=== PATIENT | female | born 1975 | race Caucasian/White ===

== ENCOUNTER → 2018-10-01 | Outpatient (CLI) | payer MEDICAID ==
--- NOTE | 2018-10-03 12:34 | CRLMY ---
INDICATION: Bilat screening mammogram, asymptomatic 43 year old female been obtained using full-field digital technique. These mammographic images were interpreted with the benefit of computer-aided detection. COMPARISON FILM: 09/12/17, 09/11/16. FINDINGS: The breast tissue is almost entirely fat. There are no masses or calcifications that are suspicious for malignancy. IMPRESSION: There is no radiographic evidence for malignancy. ASSESSMENT: BI-RADS Category 1: Negative RECOMMENDATION: Routine screening mammogram in 1 year. A lay language report of this examination will be provided to the patient. Breast Tomosynthesis was used in this interpretation. [email or web address] Dictated by: Jeremiah Klein MD @ 10/03/2018 12:33:11 (Electronically Signed)
== END | disposition home or self-care (01) ==
LOC: JP.MAM 10:24
PROVIDERS: ATTEND Nurse Practitioner Family
DX: Z12.31 Encounter for screening mammogram for malignant neoplasm of breast (principal)
CPT/HCPCS: 77063; 77067

== ENCOUNTER 2019-03-08 17:12 | Emergency (ER) | payer MEDICAID ==
[2019-03-08] MEDS ORDERED: traMADol 50 MG Tab PO ONE (18:42)
--- NOTE | 2019-03-08 18:48 | EDM.PDOC ---
ED HPI GENERAL MEDICAL PROBLEM - General Chief Complaint: Lower Extremity Injury/Pain Stated Complaint: LEFT LOWER LEG PAIN Time Seen by Provider: 03/08/19 18:31 Source of Information: Reports: Patient History Limitations: Reports: No Limitations - History of Present Illness INITIAL COMMENTS - FREE TEXT/NARRATIVE: Elaina is a 43 year old female who presents to the ED today with c/o left elise and ankle pain. Patient was in her yard picking up dog poop when she tripped over the dog leash. Patient able to bear weight but it is painful. Patient has not taken anything for her pain. Patient denies any other injuries. Onset: Today, Sudden Left Ankle Pain Score (Numeric/FACES): 3 - Related Data Allergies Allergy/AdvReac Type Severity Reaction Status Date / Time adhesive tape Allergy Swelling Verified 03/08/19 18:02 hydrocodone [From Vicodin] Allergy Drowsiness Verified 03/08/19 18:02 potassium clavulanate Allergy Itching Verified 03/08/19 18:02 [From Augmentin] Home Meds: Home Meds Albuterol [IJD: Albuterol HFA] 1 - 2 inh INH ASDIRECTED PRN 05/31/16 [History] Loratadine [Claritin] 10 mg PO DAILY 05/31/16 [History] Fluticasone/Vilanterol [Breo Ellipta 100-25 MCG Inhalation Kit] 1 dose IH DAILY 03/08/19 [History] Methotrexate Sodium [Methotrexate] 10 mg PO WEEKLY 03/08/19 [History] Omeprazole 40 mg PO DAILY 03/08/19 [History] Pregabalin [Lyrica] 200 mg PO BID 03/08/19 [History] metFORMIN [Glucophage XR] 500 mg PO BIDMEALS 03/08/19 [History] predniSONE [Prednisone] 2.5 mg PO DAILY 03/08/19 [History] Past Medical History HEENT History: Reports: Impaired Vision Respiratory History: Reports: Other (See Below) Other Respiratory History: RAD Gastrointestinal History: Reports: Chronic Constipation, Hemorrhoids Genitourinary History: Reports: None MANAGER LIBRARY History: Reports: , Other (See Below) Other MANAGER LIBRARY History: 2.3 cm ovarian cyst Endocrine/Metabolic History: Reports: Obesity/BMI 30+ - Infectious Disease History Infectious Disease History: Reports: Chicken Pox, Measles - Past Surgical History Head Surgeries/Procedures: Reports: None HEENT Surgical History: Reports: None Respiratory Surgical History: Reports: Other (See Below) Other Respiratory Surgeries/Procedures: biopsy ? GI Surgical History: Reports: Appendectomy Female Surgical History: Reports: Section, Tubal Ligation Endocrine Surgical History: Reports: None Musculoskeletal Surgical History: Reports: Other (See Below) Dermatological Surgical History: Reports: None Social & Family History - Tobacco Use Smoking Status *Q: Current Every Day Smoker Years of Tobacco use: 20 Packs/Tins Daily: 0.5 - Caffeine Use Caffeine Use: Reports: Coffee - Recreational Drug Use Recreational Drug Use: No Review of Systems - Review of Systems Review Of Systems: ROS reveals no pertinent complaints other than HPI. ED EXAM, GENERAL - Physical Exam Exam: See Below Exam Limited By: No Limitations General Appearance: Alert, WD/WN, No Apparent Distress Head: Atraumatic Neck: Normal Inspection Respiratory/Chest: No Respiratory Distress Cardiovascular: Regular Rate, Rhythm Peripheral Pulses: 2+: Dorsalis Pedis (L) Extremities: Normal Inspection, Normal Range of Motion, Other (mildly tender left upper gastrocnemious and left lateral malleolar region. Patient has intact cap refill, pulses, strength and sesation) Neurological: Alert, Oriented, CN II-XII Intact Course - Vital Signs Last Recorded V/S: Last Vital Signs Temp 37.0 C 03/08/19 18:06 Pulse 82 03/08/19 18:06 Resp 16 03/08/19 18:06 BP 149/81 H 03/08/19 18:06 Pulse Ox 98 03/08/19 18:06 Elaina is a 43 year old female who presents to the ED today with c/o left ankle and left elise pain after she rolled her ankle after after tripping over leash while picking up dog poop. Please refer to HPI and focused exam. Patient arrives here hemodynamically stable and afebrile, x-rays negative for fracture, consistent with left ankle sprain. Patient placed in CAM boot, Tylenol for pain. RICE encouraged. Follow up with PCP if symptoms not improved in one week. Wear boot for the next week. Patient agreeable to plan fo care and discharged in stable condition. - Orders/Labs/Meds Orders: Active Orders 24 hr Category Date Time Status Tibia Fibula Lt [CR] Stat Exams 03/08/19 18:42 Taken Meds: Medications Discontinued Medications Generic Name Dose Route Start Last Admin Trade Name Erika PRN Reason Stop Dose Admin Tramadol HCl 50 mg 03/08/19 18:42 03/08/19 18:45 Ultram PO 03/08/19 18:43 50 mg ONETIME ONE Administration Departure - Departure Time of Disposition: 20:30 Disposition: Home, Self-Care 01 Condition: Good Clinical Impression: Ankle sprain Qualifiers: Encounter type: initial encounter Involved ligament of ankle: unspecified ligament Laterality: left Qualified Code(s): S93.402A - Sprain of unspecified ligament of left ankle, initial encounter - Discharge Information Instructions: Ankle Sprain, [id number], Walking Boot, Adult Referrals: Jessica Mensah CNM [Primary Care Provider] - Forms: ED Department Discharge Additional Instructions: Wear walking boot for the next week. Tylenol for pain. Ice/Elevate Follow up in clinic in a week if symptoms persist. - My Orders Last 24 Hours: My Active Orders 03/08/19 18:42 Tibia Fibula Lt [CR] Stat - Assessment/Plan Last 24 Hours: My Active Orders 03/08/19 18:42 Tibia Fibula Lt [CR] Stat
--- NOTE | 2019-03-08 19:30 | CRLCR ---
INDICATION: Left ankle pain post injury. TECHNIQUE: Three views of the left ankle. COMPARISON: Today`s left tib-fib x-rays. FINDINGS: Mild soft tissue swelling medially. No fracture or other abnormality. IMPRESSION: Medial ankle sprain. Dictated by Juwan Maynard MD @ Mar 08 2019 7:27PM Signed by Dr. Juwan Maynard @ Mar 08 2019 7:28PM
[2019-03-08 20:01] VITALS: BP 146/87; PULSE 65
--- NOTE | 2019-03-08 20:22 | CRLCR ---
INDICATION: Pain after trauma COMPARISON: None available. FINDINGS: AP and lateral views of the left tibia and fibula were obtained with portable technique at 1851 hours. There is an acute, nondisplaced, oblique fracture of the fibular head. There is no sign of additional fracture, dislocation, or joint effusion. The soft tissues are normal in appearance without sign of radio-opaque foreign body. No significant degenerative disease is seen in the visualized portions of the knee and ankle. IMPRESSION: Acute, nondisplaced, oblique fracture of the fibular head. No other fracture seen in the tibia or fibula. Dictated by Albino Gross MD @ Mar 08 2019 8:18PM Signed by Dr. Albino Gross @ Mar 08 2019 8:20PM
== END 2019-03-08 20:45 | disposition home or self-care (01) ==
LOC: JP.ED 17:12
DX: S82.435A Nondisplaced oblique fracture of shaft of left fibula, initial encounter for closed fracture (principal); E66.9 Obesity, unspecified; F17.210 Nicotine dependence, cigarettes, uncomplicated; Z88.5 Allergy status to narcotic agent; Z91.048 Other nonmedicinal substance allergy status; Z88.8 Allergy status to other drugs, medicaments and biological substances; Z68.43 Body mass index [BMI] 50.0-59.9, adult; W18.40XA Slipping, tripping and stumbling without falling, unspecified, initial encounter
CPT/HCPCS: 73590; 73610; 99283; A9270

== ENCOUNTER 2020-07-13 05:23 | Day surgery (SDC) | payer MEDICAID ==
[2020-07-13] MEDS ORDERED: Bupivacaine 0.5% 30 ML SDV ONE (06:40)
[2020-07-13] MEDS ORDERED: Nozin Nasal Sanitizer NASBOTH ONE (07:00)
[2020-07-13] MEDS ORDERED: ceFAZolin 2 GM in Premix Bag 1 BAG IV ONE (07:00)
[2020-07-13] MEDS ORDERED: Lactated Ringers 1,000 ML IV SCH (07:00)
[2020-07-13] MEDS ORDERED: Albuterol/Ipratropium 3.0-0.5 MG/3 ML Neb Soln NEB ONE (07:07)
[2020-07-13] MEDS ORDERED: Propofol 200 MG/20 ML SDV ONE (07:16)
[2020-07-13] MEDS ORDERED: fentaNYL 250 MCG/5 ML SDV ONE (07:16)
[2020-07-13] MEDS ORDERED: Succinylcholine 200 MG/10 ML MDV ONE (07:16)
[2020-07-13] MEDS ORDERED: Ondansetron 4 MG/2 ML SDV ONE (07:16)
[2020-07-13] MEDS ORDERED: Glycopyrrolate 0.2 MG/ML 5 ML MDV ONE (07:16)
[2020-07-13] MEDS ORDERED: Dexamethasone 4 MG/ML SDV ONE (07:16)
[2020-07-13] MEDS ORDERED: Rocuronium 50 MG/5 ML Vial ONE (07:16)
[2020-07-13] MEDS ORDERED: Neostigmine Methylsulfate 1 MG/ML 5 ML Syringe ONE (07:16)
[2020-07-13] MEDS ORDERED: fentaNYL 100 MCG/2 ML SDV ONE (08:19)
[2020-07-13] MEDS ORDERED: Acetaminophen/oxyCODONE 325-5 MG Tab PO PRN (09:35)
[2020-07-13 10:35] VITALS: BP 109/66; PULSE 70
--- NOTE | 2020-07-27 15:45 | OR ---
DATE OF PROCEDURE: 07/13/2020 SURGEON: Donaldo Cobos MD PREOPERATIVE DIAGNOSIS: Chondromalacia, right knee. POSTOPERATIVE DIAGNOSIS: Chondromalacia, right knee, tricompartmental grade 3 and 4. PROCEDURE: Arthroscopy of right knee with chondroplasty, medial femoral condyle, lateral femoral condyle, lateral tibial plateau, and patellofemoral joint. ANESTHESIA: General. INDICATIONS: Elaina is a 44-year-old female with a history of progressive pain, grinding, and giving way in the right knee. She has failed conservative treatment. She now presents for arthroscopic examination and chondroplasty as necessary. Risks, benefits, and potential complications were discussed. PROCEDURE IN DETAIL: After adequate anesthesia was obtained, patient was placed supine with a tourniquet about the right upper thigh. Right leg was prepped and draped in a sterile fashion. Leg was exsanguinated and tourniquet inflated to 300 mmHg pressure. Standard inferior portals were established. Scope was introduced. The patellofemoral joint was inspected, which revealed grade 3 chondromalacia on the dome of the patella with significant fibrillation. No full-thickness loss. Mild synovitis was present in the suprapatellar pouch. Medial compartment revealed similar changes in medial femoral condyle with grade 3 fibrillation. Medial meniscus was intact. ACL and PCL were intact. Lateral compartment showed chondromalacia as well including some grade 3 changes on the tibial plateau. Lateral meniscus was intact. Moving back up into the patellofemoral joint, shaver was introduced and chondroplasty performed over the dome of the patella. Looking more laterally, an area of grade 4 change was noted with loss of articular cartilage and loose articular flaps around the periphery. Chondroplasty was performed over this. Moving into the medial compartment, medial femoral condyle was also debrided of any loose articular cartilage. This was not taken down to subchondral bone. Medial meniscus was further explored and again was intact. Lateral compartment chondroplasty was performed over the lateral femoral condyle, more along the intercondylar notch as well as tibial plateau just adjacent to the posterior horn of the meniscus. All loose flaps were removed. The knee was inspected once again. No other abnormalities were identified. Knee was drained. Scope was withdrawn. Port sites were closed in a standard fashion, infiltrated with Marcaine. A sterile dressing was applied. Light compressive dressing was then placed. The patient tolerated procedure well. There were no complications. Taken from the operating room in stable condition. Donaldo Cobos MD /[id number] MTDD
== END 2020-07-13 11:00 | disposition home or self-care (01) ==
LOC: JP.SDS 05:23
PROVIDERS: ATTEND Specialist
DX: M22.41 Chondromalacia patellae, right knee (principal); M65.9 Synovitis and tenosynovitis, unspecified; G89.29 Other chronic pain; D86.89 Sarcoidosis of other sites; K21.9 Gastro-esophageal reflux disease without esophagitis; E11.9 Type 2 diabetes mellitus without complications; E66.01 Morbid (severe) obesity due to excess calories; Z68.42 Body mass index [BMI] 45.0-49.9, adult; F17.210 Nicotine dependence, cigarettes, uncomplicated; Z88.1 Allergy status to other antibiotic agents; Z88.8 Allergy status to other drugs, medicaments and biological substances; Z91.09 Other allergy status, other than to drugs and biological substances; Z79.84 Long term (current) use of oral hypoglycemic drugs; Z79.899 Other long term (current) drug therapy; Z98.890 Other specified postprocedural states
CPT/HCPCS: 29877; 36415; 80053; 81025; 85027; 94640; A9270; J0330; J0690; J1100; J2405; J2704; J2710; J3010; J3490; J7120; J7620-GY

== ENCOUNTER 2021-01-30 05:39 | Day surgery (SDC) | payer MEDICAID ==
[2021-01-30] MEDS ORDERED: Nozin Nasal Sanitizer NASBOTH ONE (06:00)
[2021-01-30] MEDS ORDERED: Lactated Ringers 1,000 ML IV SCH (06:00)
[2021-01-30 06:04] VITALS: BP 116/62; PULSE 72
[2021-01-30] MEDS ORDERED: Bupivacaine 0.5% 30 ML SDV ONE ×2 (06:30→06:37)
[2021-01-30] MEDS ORDERED: Povidone-Iodine 10% Soln 118.25 ML Bottle ONE (06:37)
[2021-01-30] MEDS ORDERED: Propofol 200 MG/20 ML SDV ONE (07:25)
[2021-01-30] MEDS ORDERED: fentaNYL 100 MCG/2 ML SDV ONE (07:25)
[2021-01-30] MEDS ORDERED: Midazolam 1 MG/ML 2 ML SDV ONE (07:25)
[2021-01-30] MEDS ORDERED: ceFAZolin 2 GM in Premix Bag 1 BAG IV ONE (07:45)
== END 2021-01-30 08:45 | disposition home or self-care (01) ==
LOC: JP.SDS 05:39
PROVIDERS: ATTEND Specialist
DX: M94.262 Chondromalacia, left knee (principal); Z53.09 Procedure and treatment not carried out because of other contraindication
CPT/HCPCS: 36415; 81025; 86850; 86900; 86901; A9270-GY; J2250; J2704; J3010; J3490; J7120

== ENCOUNTER 2021-02-01 07:29 | Day surgery (SDC) | payer MEDICAID ==
[~2021-02-01 07:29] MED LIST: Bupivacaine 0.5% 30 ML SDV ONE; Povidone-Iodine 10% Soln 118.25 ML Bottle ONE
[2021-02-01] MEDS ORDERED: Lactated Ringers 1,000 ML IV SCH (08:00)
[2021-02-01] MEDS: Nozin Nasal Sanitizer NASBOTH SCH ×3 (08:05→21:43)
[2021-02-01] MEDS ORDERED: ceFAZolin 2 GM in Premix Bag 1 BAG IV ONE (09:00)
[2021-02-01] MEDS ORDERED: Propofol 200 MG/20 ML SDV ONE ×3 (09:01→11:03)
[2021-02-01] MEDS ORDERED: fentaNYL 100 MCG/2 ML SDV ONE (09:01)
[2021-02-01] MEDS ORDERED: Midazolam 1 MG/ML 2 ML SDV ONE ×2 (09:02→10:41)
[2021-02-01] MEDS ORDERED: traMADol 50 MG Tab PO PRN (11:45)
[2021-02-01] MEDS ORDERED: Acetaminophen 325 MG Tab PO PRN (11:45)
[2021-02-01] MEDS ORDERED: Ondansetron 4 MG/2 ML SDV IVPUSH PRN (11:45)
[2021-02-01] MEDS ORDERED: Albuterol 8 GM Inhaler INH PRN (11:50)
[2021-02-01] MEDS: Ketorolac 30 MG/ML SDV IVPUSH PRN ×2 (13:46→21:48)
[2021-02-01] MEDS: Sodium Chloride 0.9% 1,000 ML IV SCH (13:46)
--- NOTE | 2021-02-01 14:14 | CR ---
Knee 1V or 2V Lt CLINICAL HISTORY: Hemiarthroplasty FINDINGS: Patient has a medial hemiarthroplasty. Components appear well seated. There is some periarticular spurring. There is intra-articular and subcutaneous nasal air from recent surgery.
[2021-02-01] MEDS: Acetaminophen/HYDROcodone 325-5 MG Tab PO PRN ×2 (15:44→19:36)
[2021-02-01] MEDS: metFORMIN 500 MG Tab PO SCH (17:53)
[2021-02-01] MEDS: ceFAZolin 1 GM in Premix Bag 1 BAG IV SCH (17:56)
[2021-02-01] MEDS: Docusate Sodium 100 MG Cap PO SCH (21:44)
[2021-02-01] MEDS: Pregabalin 100 MG Cap PO SCH (21:48)
[2021-02-02] MEDS: ceFAZolin 1 GM in Premix Bag 1 BAG IV SCH ×2 (04:13→09:30)
[2021-02-02] MEDS: Acetaminophen/HYDROcodone 325-5 MG Tab PO PRN ×4 (04:25→16:58)
[2021-02-02] MEDS: Sodium Chloride 0.9% 1,000 ML IV SCH (05:55)
[2021-02-02] MEDS ORDERED: Tiotropium Bromide 4 GM Inhalation Spray (2.5mcg/1 dose; 10 doses) INH SCH ×2 (07:00→21:00)
[2021-02-02] MEDS ORDERED: Formoterol/Mometasone 200-5 MCG 8.8 GM Inhaler IH SCH (07:00)
[2021-02-02] MEDS ORDERED: Pantoprazole 40 MG Tab.CR PO SCH (07:30)
--- NOTE | 2021-02-02 07:43 | PCM.SURGPN ---
- General Info Date of Service: 02/02/21 Date of Surgery/Procedure: 02/01/21 POD#: 1 Post-Op Diagnosis: left knee medial compartment osteoarthritis Admission Diagnosis/Problem: Knee joint operation Functional Status: Reports: Pain Controlled, Tolerating Diet, Urinating - Review of Systems General: Reports: No Symptoms. Denies: Fever, Fatigue, Chills Pulmonary: Denies: Shortness of Breath Cardiovascular: Denies: Chest Pain Gastrointestinal: Denies: Nausea, Vomiting Musculoskeletal: Reports: Leg Pain (left ), Joint Pain (left knee ), Joint Swelling (left knee ) Neurological: Reports: No Symptoms Psychiatric: Reports: No Symptoms - Patient Data Vitals - Most Recent: Last Vital Signs Temp 98.0 F 02/02/21 06:50 Pulse 60 02/02/21 06:50 Resp 16 02/02/21 06:50 BP 100/61 02/02/21 06:50 Pulse Ox 94 L 02/02/21 06:50 Weight - Most Recent: 321 lb 12.8 oz I&O - Last 24 Hours: Intake & Output 02/01/21 02/02/21 02/02/21 22:59 06:59 14:59 Intake Total 1217 1325 Balance 1217 1325 Lab Results Last 24 Hrs: Laboratory Results - last 24 hr 02/01/21 02/01/21 02/01/21 Range/Units 12:00 18:46 21:02 WBC (4.5-11.0) K/uL RBC (3.30-5.50) M/uL Hgb (12.0-15.0) g/dL Hct (36.0-48.0) % MCV (80-98) fL MCH (27-31) pg MCHC (32-36) % Plt Count (150-400) K/uL POC Glucose 81 157 H 116 H (74-106) mg/dL 02/02/21 Range/Units 05:20 WBC 7.8 (4.5-11.0) K/uL RBC 4.13 (3.30-5.50) M/uL Hgb 11.8 L (12.0-15.0) g/dL Hct 36.3 (36.0-48.0) % MCV 88 (80-98) fL MCH 29 (27-31) pg MCHC 33 (32-36) % Plt Count 273 (150-400) K/uL POC Glucose (74-106) mg/dL Med Orders - Current: Current Medications Acetaminophen (Acetaminophen 325 Mg Tab) 650 mg PO Q4H PRN PRN Reason: Pain/Fever Last Admin: 02/01/21 15:44 Dose: 650 mg Documented by: Hydrocodone Bitart/Acetaminophen (Acetaminophen/Hydrocodone 325-5 Mg Tab) 1 - 2 tab PO Q4H PRN PRN Reason: Pain Last Admin: 02/02/21 04:25 Dose: 2 tab Documented by: Albuterol (Albuterol 8 Gm Inhaler) 0 gm INH ASDIRECTED PRN PRN Reason: Shortness of Breath Bandage/Support Products (Nozin Nasal Feature Writer) 1 applic NASBOTH BID [facility] Last Admin: 02/01/21 21:43 Dose: 1 applic Documented by: Docusate Sodium (Docusate Sodium 100 Mg Cap) 100 mg PO BID [facility] Last Admin: 02/01/21 21:44 Dose: 100 mg Documented by: Enoxaparin Sodium (Enoxaparin 30 Mg/0.3 Ml Syringe) 30 mg SUBCUT DAILY [facility] Sodium Chloride (Normal Saline) 1,000 mls @ 125 mls/hr IV ASDIRECTED [facility] Last Admin: 02/02/21 05:55 Dose: 125 mls/hr Documented by: Cefazolin Sodium/Dextrose 1 gm (/ Premix) 50 mls @ 100 mls/hr IV Q8H [facility] Stop: 02/02/21 10:29 Last Admin: 02/02/21 04:13 Dose: 100 mls/hr Documented by: Ketorolac Tromethamine (Ketorolac 30 Mg/Ml Sdv) 15 mg IVPUSH Q8H PRN PRN Reason: Breakthrough Pain Stop: 02/06/21 11:46 Last Admin: 02/01/21 21:48 Dose: 15 mg Documented by: Loratadine (Loratadine 10 Mg Tab) 10 mg PO DAILY [facility] Metformin HCl (Metformin 500 Mg Tab) 500 mg PO BIDMEALS [facility] Last Admin: 02/01/21 17:53 Dose: 500 mg Documented by: Mometasone Furoate/Formoterol Fumar (Formoterol/Mometasone 200-5 Mcg 8.8 Gm Inhaler) 1 puff IH DAILY@0700 [facility] Last Admin: 02/02/21 07:21 Dose: 1 puff Documented by: Ondansetron HCl (Ondansetron 4 Mg/2 Ml Sdv) 4 mg IVPUSH Q4H PRN PRN Reason: Nausea/Vomiting Pantoprazole Sodium (Pantoprazole 40 Mg Tab.Cr) 40 mg PO ACBREAKFAST [facility] Pregabalin (Pregabalin 100 Mg Cap) 200 mg PO BID [facility] Last Admin: 02/01/21 21:48 Dose: 200 mg Documented by: Tiotropium [place] (Tiotropium [place] 4 Gm Inhalation [place] (2.5mcg/1 Dose; 10 Doses)) 0 gm INH BEDTIME [facility] Tramadol HCl (Tramadol 50 Mg Tab) 50 mg PO Q4H PRN PRN Reason: Pain (mild 1-3) Last Admin: 02/01/21 14:44 Dose: 50 mg Documented by: Discontinued Medications Bandage/Support Products (Nozin Nasal Feature Writer) 1 applic NASBOTH BID [facility] Last Admin: 02/01/21 13:47 Dose: Not Given Documented by: Bupivacaine HCl (Bupivacaine 0.5% 30 Ml Sdv) Confirm Administered Dose 30 ml .ROUTE .STK-MED ONE Stop: 02/01/21 06:54 Fentanyl (Fentanyl 100 Mcg/2 Ml Sdv) Confirm Administered Dose 100 mcg .ROUTE .STK-MED ONE Stop: 02/01/21 09:02 Cefazolin Sodium/Dextrose 2 gm (/ Premix) 50 mls @ 100 mls/hr IV ONETIME ONE Stop: 02/01/21 09:29 Last Admin: 02/01/21 10:21 Dose: 100 mls/hr Documented by: Lactated Ringer's (Ringers, Lactated) 1,000 mls @ 75 mls/hr IV ASDIRECTED [facility] Last Admin: 02/01/21 08:05 Dose: 75 mls/hr Documented by: Midazolam HCl (Midazolam 1 Mg/Ml 2 Ml Sdv) Confirm Administered Dose 2 mg .ROUTE .STK-MED ONE Stop: 02/01/21 09:03 Midazolam HCl (Midazolam 1 Mg/Ml 2 Ml Sdv) Confirm Administered Dose 2 mg .ROUTE .STK-MED ONE Stop: 02/01/21 10:42 Povidone Iodine (Povidone-Iodine 10% Soln 118.25 Ml Bottle) Confirm Administered Dose 1 ml .ROUTE .STK-MED ONE Stop: 02/01/21 06:54 Propofol (Propofol 200 Mg/20 Ml Sdv) Confirm Administered Dose 200 mg .ROUTE .STK-MED ONE Stop: 02/01/21 09:02 Propofol (Propofol 200 Mg/20 Ml Sdv) Confirm Administered Dose 200 mg .ROUTE . STK-MED ONE Stop: 02/01/21 10:51 Propofol (Propofol 200 Mg/20 Ml Sdv) Confirm Administered Dose 200 mg .ROUTE .STK-MED ONE Stop: 02/01/21 11:04 Tiotropium [place] (Tiotropium [place] 4 Gm Inhalation [place] (2.5mcg/1 Dose; 10 Doses)) 0 gm INH DAILY@0700 [facility] Last Admin: 02/02/21 07:22 Dose: Not Given Documented by: - Exam Wound/Incisions: Dressing Dry and Intact, Drainage (dried drainage on DEB wrap ) Quality Assessment: DVT Prophylaxis General: Alert, Oriented, Cooperative, No Acute Distress Extremities: Pedal Edema, Joint Swelling (left knee ), Leg Pain (left ), Limited Range of Motion (left knee due to postoperative swelling ), Other (posterior tibial pulse, 2+. Dorsiflexion: 4/5. Plantar flexion: 4/5. ). No: Esteban's Sign Neurological: No New Focal Deficit Psy/Mental Status: Alert, Normal Affect, Normal Mood Sepsis Event Note - Evaluation Sepsis Screening Result: No Definite Risk - Focused Exam Vital Signs: Vital Signs Temp Pulse Resp BP Pulse Ox 02/02/21 06:50 98.0 F 60 16 100/61 94 L 02/02/21 03:16 98.7 F 57 L 16 95/43 L 97 02/01/21 22:46 98.0 F 54 L 16 92/47 L 95 - Problem List & Annotations (1) Postoperative anemia SNOMED Code(s): 857179359, 290207058 Code(s): D64.9 - ANEMIA, UNSPECIFIED Status: Acute Current Visit: Yes (2) Status post left partial knee replacement SNOMED Code(s): 453590239, 59463136, 391729673, 194200746 Code(s): Z96.652 - PRESENCE OF LEFT ARTIFICIAL KNEE JOINT Status: Acute Current Visit: Yes - Problem List Review Problem List Initiated/Reviewed/Updated: Yes - My Orders Last 24 Hours: Active Orders 24 hr Category Date Time Status Patient Status [ADT] Routine ADT 02/01/21 11:46 Active Ambulate [RC] QID Care 02/01/21 11:46 Active Antiembolic Devices [RC] .Routine Care 02/01/21 08:00 Active Antiembolic Devices [RC] .Routine Care 02/01/21 11:46 Active Blood Glucose Check, Bedside [RC] QIDACANDBED Care 02/01/21 11:45 Active Head of Bed Elevation [RC] ASDIRECTED Care 02/01/21 11:46 Active Intake and Output [RC] QSHIFT Care 02/01/21 11:46 Active May Shower [RC] ASDIRECTED Care 02/01/21 11:46 Active Neurovascular Check [RC] Q4H Care 02/01/21 11:46 Active Oxygen Therapy [RC] PRN Care 02/01/21 11:46 Active Pneumonia Education [RC] UPON Care 02/01/21 11:46 Active RT Incentive Spirometry [RC] ASDIRECTED Care 02/01/21 08:00 Active RT Incentive Spirometry [RC] Q1HWA Care 02/01/21 11:46 Active RT Post Treatment Assessment [RC] Click to Edit Care 02/01/21 11:51 Active Up to Chair [RC] QID Care 02/01/21 11:46 Active Up to Chair [RC] QID Care 02/01/21 11:46 Active VTE/DVT Education [RC] Click to Edit Care 02/01/21 11:46 Active Vital Signs [RC] PER UNIT ROUTINE Care 02/01/21 11:46 Active Wound Care [RC] Q12H Care 02/01/21 11:46 Active Consult to Case Management/Oil Exploration Engineer [CONS] Cons 02/01/21 11:46 Active Routine OT Evaluation and Treatment [CONS] Routine Cons 02/01/21 11:45 Active PT Evaluation and Treatment [CONS] Routine Cons 02/01/21 11:46 Active Consistent Carbohydrate Diet [DIET] Diet 02/01/21 Lunch Active GLUCOSE POC LAB TO COLLECT JPM [POC] QIDACANDBED Lab 02/02/21 07:30 Ordered GLUCOSE POC LAB TO COLLECT JPM [POC] QIDACANDBED Lab 02/02/21 11:30 Ordered GLUCOSE POC LAB TO COLLECT JPM [POC] QIDACANDBED Lab 02/02/21 16:30 Ordered GLUCOSE POC LAB TO COLLECT JPM [POC] QIDACANDBED Lab 02/02/21 21:00 Ordered GLUCOSE POC LAB TO COLLECT JPM [POC] QIDACANDBED Lab 02/03/21 07:30 Ordered GLUCOSE POC LAB TO COLLECT JPM [POC] QIDACANDBED Lab 02/03/21 11:30 Ordered GLUCOSE POC LAB TO COLLECT JPM [POC] QIDACANDBED Lab 02/03/21 16:30 Ordered GLUCOSE POC LAB TO COLLECT JPM [POC] QIDACANDBED Lab 02/03/21 21:00 Ordered GLUCOSE POC LAB TO COLLECT JPM [POC] QIDACANDBED Lab 02/04/21 07:30 Ordered Acetaminophen [TylenoL] Med 02/01/21 11:45 Active 650 mg PO Q4H PRN Acetaminophen/HYDROcodone [[place] 325-5 MG] Med 02/01/21 11:52 Active 1 - 2 tab PO Q4H PRN Albuterol [Ventolin HFA] Med 02/01/21 11:50 Active 0 gm INH ASDIRECTED PRN Docusate Sodium [Colace] Med 02/01/21 21:00 Active 100 mg PO BID Enoxaparin [Lovenox] Med 02/02/21 09:00 Active 30 mg SUBCUT DAILY Ketorolac [Toradol] Med 02/01/21 11:45 Active 15 mg IVPUSH Q8H PRN Loratadine [Claritin] Med 02/02/21 09:00 Active 10 mg PO DAILY Mometasone/Formoterol [Dulera 200-5 MCG] Med 02/02/21 07:00 Active 1 puff IH DAILY@0700 Nozin [ Nasal Feature Writer] Med 02/01/21 21:00 Active 1 applic NASBOTH BID Ondansetron [Zofran] Med 02/01/21 11:45 Active 4 mg IVPUSH Q4H PRN Pantoprazole [ProTONIX] Med 02/02/21 07:30 Active 40 mg PO ACBREAKFAST Pregabalin [Lyrica] Med 02/01/21 21:00 Active 200 mg PO BID Sodium Chloride 0.9% [Normal Saline] 1,000 ml Med 02/01/21 11:45 Active IV ASDIRECTED Tiotropium [place] [Spiriva Respimat] Med 02/02/21 21:00 Active 0 gm INH BEDTIME ceFAZolin [Ancef 1 GM/50 ML] 1 gm Med 02/01/21 18:00 Active Premix Bag 1 bag IV Q8H metFORMIN [Glucophage] Med 02/01/21 17:00 Active 500 mg PO BIDMEALS traMADol [Ultram] Med 02/01/21 11:45 Active 50 mg PO Q4H PRN Antiembolic Hose [OM.PC] Routine Oth 02/01/21 11:46 Ordered DVT/VTE Prophylaxis Reflex [OM.PC] Routine Oth 02/01/21 11:46 Ordered Ice Therapy [OM.PC] Per Unit Routine Oth 02/01/21 11:46 Ordered Medication Continuation Instructions [OM.PC] Per Unit Oth 02/01/21 11:46 Ordered Routine Oral Care [OM.PC] Routine Oth 02/01/21 11:46 Ordered Sequential Compression Device [OM.PC] Routine Oth 02/01/21 11:46 Ordered FANNY Hose [Antiembolic Hose] [OM.PC] Routine Oth 02/01/21 08:00 Ordered Weight bearing status [OM.PC] Routine Oth 02/01/21 11:54 Ordered Resuscitation Status Routine Resus Stat 02/01/21 11:45 Ordered Medication Orders Acetaminophen (Acetaminophen 325 Mg Tab) 650 mg PO Q4H PRN PRN Reason: Pain/Fever Last Admin: 02/01/21 15:44 Dose: 650 mg Documented by: LONNIE Hydrocodone Bitart/Acetaminophen (Acetaminophen/Hydrocodone 325-5 Mg Tab) 1 - 2 tab PO Q4H PRN PRN Reason: Pain Last Admin: 02/02/21 04:25 Dose: 2 tab Documented by: Admin: 02/01/21 19:36 Dose: 2 tab Documented by: Admin: 02/01/21 15:44 Dose: 1 tab Documented by: LONNIE Albuterol (Albuterol 8 Gm Inhaler) 0 gm INH ASDIRECTED PRN PRN Reason: Shortness of Breath Bandage/Support Products (Nozin Nasal Feature Writer) 1 applic NASBOTH BID [facility] Last Admin: 02/01/21 21:43 Dose: 1 applic Documented by: YOUNALA Docusate Sodium (Docusate Sodium 100 Mg Cap) 100 mg PO BID [facility] Last Admin: 02/01/21 21:44 Dose: 100 mg Documented by: ANTHONY Enoxaparin Sodium (Enoxaparin 30 Mg/0.3 Ml Syringe) 30 mg SUBCUT DAILY [facility] Sodium Chloride (Normal Saline) 1,000 mls @ 125 mls/hr IV ASDIRECTED [facility] Last Admin: 02/02/21 05:55 Dose: 125 mls/hr Documented by: Infusion: 02/01/21 21:46 Dose: 125 mls/hr Documented by: Admin: 02/01/21 13:46 Dose: 125 mls/hr Documented by: CLARE Cefazolin Sodium/Dextrose 1 gm (/ Premix) 50 mls @ 100 mls/hr IV Q8H [facility] Stop: 02/02/21 10:29 Last Admin: 02/02/21 04:13 Dose: 100 mls/hr Documented by: Infusion: 02/01/21 18:26 Dose: 100 mls/hr Documented by: Admin: 02/01/21 17:56 Dose: 100 mls/hr Documented by: LONNIE Ketorolac Tromethamine (Ketorolac 30 Mg/Ml Sdv) 15 mg IVPUSH Q8H PRN PRN Reason: Breakthrough Pain Stop: 02/06/21 11:46 Last Admin: 02/01/21 21:48 Dose: 15 mg Documented by: Admin: 02/01/21 13:46 Dose: 15 mg Documented by: CLARE Loratadine (Loratadine 10 Mg Tab) 10 mg PO DAILY [facility] Metformin HCl (Metformin 500 Mg Tab) 500 mg PO BIDMEALS [facility] Last Admin: 02/01/21 17:53 Dose: 500 mg Documented by: LONNIE Mometasone Furoate/Formoterol Fumar (Formoterol/Mometasone 200-5 Mcg 8.8 Gm Inhaler) 1 puff IH DAILY@0700 [facility] Last Admin: 02/02/21 07:21 Dose: 1 puff Documented by: YAA Ondansetron HCl (Ondansetron 4 Mg/2 Ml Sdv) 4 mg IVPUSH Q4H PRN PRN Reason: Nausea/Vomiting Pantoprazole Sodium (Pantoprazole 40 Mg Tab.Cr) 40 mg PO ACBREAKFAST [facility] Pregabalin (Pregabalin 100 Mg Cap) 200 mg PO BID [facility] Last Admin: 02/01/21 21:48 Dose: 200 mg Documented by: ANTHONY Tiotropium [place] (Tiotropium [place] 4 Gm Inhalation [place] (2.5mcg/1 Dose; 10 Doses)) 0 gm INH BEDTIME [facility] Tramadol HCl (Tramadol 50 Mg Tab) 50 mg PO Q4H PRN PRN Reason: Pain (mild 1-3) Last Admin: 02/01/21 14:44 Dose: 50 mg Documented by: [id number] - Assessment Assessment (Free Text/Narrative):: Patient is a 45-year-old female, status post left knee medial compartment uniarthroplasty, postop day #1. Patient tolerated surgery well with no complications. No acute events overnight. Patient remains hemodynamically stable. Had some soft blood pressures overnight, improving this morning. Postop day #1 hemoglobin declined to 11.8. Patient is asymptomatic with this; denied lightheadedness, dizziness, nor vision changes. Patient also denied subjective fever, chills, dyspnea, chest pain, nor palpitations. Patient worked with physical therapy yesterday afternoon following surgery. Able to transfer from bed to chair with four-wheel walker and x1 assist. Did not ambulate further than this due to significant pain in knee with attempts to full weight-bear. Dressing on left knee had two areas with serosanguineous drainage upon standing with physical therapy yesterday; dressing was reinforced with new DEB wrap and has had no further drainage since this incident. Patient reports pain is well controlled at rest. Denied nausea or emesis. Tolerating consistent carbohydrate diet well. Slept well last night without much discomfort. Denied paresthesias to LLE. Denied calf pain. Patient requires inpatient status at this time to allow for further physical therapy services to progress functional mobility of left lower extremity for a safe discharge to home. Also requires adequate pain control with oral medications for discharge. Exam: Left posterior tibial pulse, 2+. Sensation to left lower extremity intact. Left knee deb wrap intact with dried drainage. Left knee range of motion limited from bulky dressing and postoperative swelling. Pedal edema present. Negative Homans sign. Plan: * Continue to participate in PT and OT services daily while in the hospital. * Continue with current pain regimen; will need to transition to all oral medications for discharge. * Continue with 30 mg Lovenox subcutaneous daily for chemical DVT/VTE prophylaxis and bilateral lower extremity SCDs for mechanical prophylaxis while inpatient. * Dressing change to be performed on postop day #2 by orthopedic provider. * Postoperative anemia stable at this time. Continue to monitor vitals q4 hrs. Continue with maintenance fluids at this time. If patient becomes symptomatic can recheck a CBC. * Anticipate discharge to home when patient is medically stable and functional mobility of left lower extremity improves. May benefit from home health services + home health physical therapy at time of discharge.
[2021-02-02] MEDS: Ketorolac 30 MG/ML SDV IVPUSH PRN ×2 (07:45→15:46)
[2021-02-02] MEDS: metFORMIN 500 MG Tab PO SCH ×2 (08:16→17:41)
[2021-02-02] MEDS: Nozin Nasal Sanitizer NASBOTH SCH (08:17)
[2021-02-02] MEDS: Docusate Sodium 100 MG Cap PO SCH (08:18)
[2021-02-02] MEDS: Pregabalin 100 MG Cap PO SCH (08:24)
[2021-02-02] MEDS ORDERED: Enoxaparin 30 MG/0.3 ML Syringe SUBCUT SCH (09:00)
[2021-02-02] MEDS ORDERED: Loratadine 10 MG Tab PO SCH (09:00)
[2021-02-02 15:18] VITALS: BP 115/58; PULSE 73
--- NOTE | 2021-02-02 17:27 | PCM.DCSUM1 ---
Discharge Summary - Hospital Course HPI Initial Comments: Francia 45 y/o female with history of left knee osteoarthritis, primarily affecting the medial compartment. Symptoms were refractory to therapy, bracing, and injections. Elected to undergo a left uniarthroplasty of the medial compartment. Tolerated surgery well with no complications. Postoperative period has been rather uneventful. Progressed nicely with PT services and pain is well controlled on PO medications. Patient is medically stable at this time and vocalized readiness for discharge. Discharge to home this evening. Home health referral in place for home health services and physical therapy. Diagnosis: Stroke: No Modified [place] Scale: No Symptoms at All Modified Emy Scale Score: 0 - Discharge Data Discharge Date: 02/02/21 Discharge Disposition: Home, W Home Health Agency 06 Condition: Good - Referral to Home Health Date of Face to Face Encounter: 02/02/21 Reason for Homebound Status: motivated to go home, support from children Primary Care Physician: Jessica Mensah CNM Skilled Need: home health physical therapy to progress ROM + adls as assistance is needed - Discharge Diagnosis/Problem(s) (1) Postoperative anemia SNOMED Code(s): 441527109, [id number] ICD Code: D64.9 - ANEMIA, UNSPECIFIED Status: Acute Current Visit: Yes (2) Status post left partial knee replacement SNOMED Code(s): 450505001, 73712191, [id number], [id number] ICD Code: Z96.652 - PRESENCE OF LEFT ARTIFICIAL KNEE JOINT Status: Acute Current Visit: Yes - Patient Summary/Data Operative Procedure(s) Performed: left knee medial compartment uniarthroplasty Consults: Consultations 02/01/21 11:45 OT Evaluation and Treatment [CONS] Routine Please Evaluate and Treat. OT Reason for Consult: ADL's This query below is only for informational purposes and is not editable. 02/01/21 11:46 Consult to Case Management/Bow Rehairer [CONS] Routine Comment: Physician Instructions: Service(s) to be Consulted: Case Management Reason for Consult: Plan for Discharge Special Instructions: anticipate dc to home with home health when medically stable PT Evaluation and Treatment [CONS] Routine Please Evaluate and Treat. PT Reason for Consult: Post op Ortho Surgery Special Instructions: s/p L uni arthroplasty, medial compartment. WBAT This query below is only for informational purposes and is not editable. Hospital Course: Patient is a pleasant 45 y/o female, s/p left medial compartment uniarthroplasty, POD#1. Patient tolerated surgery well with no complications. No acute events during hospitalization. Has been hemodynamically stable postoperatively. Had some hypotension that improved throughout POD#1. POD#1 HgB declined to 11.8. Patient has been asymptomatic with this. Denied lightheadedness, dizziness, orthostatic hypotension, nor vision changes. Patient also denied subjective fever, chills, fatigue, nor calf pain. Does endorse left knee pain with ambulation and transitional positions. Pain is adequately controlled at this time with oral medications. Has been tolerating consistent carbohydrate diet well. Denied nausea or emesis. Patient worked with PT and OT services while inpatient. With PT, progressed ambulation abilities with FWW, up to 126 ft with FWW and SBA. Demonstrated competency on stairs this afternoon. Able to complete ADLs with minimal assistance. OT provided patient with adaptive equipment/leg title coordinator for home to aid with leg transfers into and out of bed. Dressing did have some drainage the afternoon following surgery upon standing with therapy services, no further active drainage. Dressing was changed on POD#1. Patient does have support from older children at home. Plans to discharge home with home health services referral. Exam: Left knee incision well approximated, steristrips above with dried drainage. No surrounding erythema, active drainage, nor significant warmth. Mild, diffuse post-operative swelling present on left knee, extending into calf and pedal region. Negative homans sign. Tibial pulse appreciated, 2+. Knee ROM limited from pain and swelling, 6-75. - Patient Instructions Diet: Usual Diet as Tolerated Activity: Apply Ice, Full Weight Bearing Driving: Do Not Drive Showering/Bathing: Shower in AM Wound/Incision Care: Keep Operative Site/Wound Site Clean and Dry, Change Dr ch Daily Notify Provider of: Fever, Increased Pain, Swelling and Redness, Drainage - Discharge Plan *PRESCRIPTION DRUG MONITORING PROGRAM REVIEWED*: Yes *COPY OF PRESCRIPTION DRUG MONITORING REPORT IN PATIENT SHANNON: Not Applicable Prescriptions/Med Rec: Aspirin 325 mg PO BID #60 tablet Acetaminophen/HYDROcodone [HYDROcodone-Acetaminophen 325-5 MG] 1 - 2 tab PO Q6H PRN #30 tab PRN Reason: Pain Home Medications: Home Meds Albuterol [IJD: Albuterol HFA] 1 - 2 inh INH ASDIRECTED PRN 05/31/16 [History] Loratadine [Claritin] 10 mg PO DAILY 05/31/16 [History] Omeprazole 40 mg PO DAILY 03/08/19 [History] Pregabalin [Lyrica] 200 mg PO BID 03/08/19 [History] Tiotropium [Spiriva HandiHaler] 1 puff INH DAILY 07/13/20 [History] Cholecalciferol (Vitamin D3) [Vitamin D] 5,000 unit PO DAILY 01/30/21 [History] Non-Formulary Medication [NF Drug] 1 inh INH DAILY 02/01/21 [History] metFORMIN [Glucophage] 500 mg PO BIDMEALS 02/01/21 [History] Acetaminophen/HYDROcodone [HYDROcodone-Acetaminophen 325-5 MG] 1 - 2 tab PO Q6H PRN #30 tab 02/02/21 [Rx] Aspirin 325 mg PO BID #60 tablet 02/02/21 [Rx] Oxygen Therapy Mode: Room Air Patient Handouts: Incision Care, Adult, Amdm-yd-Pail, Partial Knee Replacement, Care After Referrals: Donaldo Cobos MD [Physician] - 02/14/21 11:00 am (Please arrive 15 minutes early to register for your appointment.) - Discharge Summary/Plan Comment DC Time >30 min.: No Total # of Minutes for Discharge Time: 20 Discharge Summary/Plan Comment: * Prescription sent to pharmacy for pain control. Encouraged to continue with stool softener while on this medication. * Educated patient on shower and dressing instructions; may remove dressing tomorrow (02/03) and shower. Let water run over paper tapes. Does not need to apply a new dressing, unless paper tapes are irritating to clothing. Do not submerge incision in water/bath/pools * Educated on risks and warning signs of DVT/VTE after surgery. Patient expressed understanding and agreeable to take 1 aspirin BID for DVT/VTE prophylaxis. * Home Health referral has been placed for home health and therapy services. * Patient to contact clinic with any concerns or questions that arise. Otherwise, will see patient at 2 week orthopedic follow up visit. - General Info Date of Service: 02/02/21 Admission Dx/Problem (Free Text: left knee medial compartment uniarthroplasty Functional Status: Reports: Pain Controlled, Tolerating Diet, Ambulating (with FWW ) - Review of Systems General: Reports: No Symptoms. Denies: Fever, Fatigue, Chills Pulmonary: Denies: Shortness of Breath Cardiovascular: Denies: Chest Pain, Palpitations Gastrointestinal: Denies: Nausea, Vomiting Musculoskeletal: Reports: Leg Pain, Joint Pain (left knee ), Joint Swelling (left knee ) Skin: Reports: No Symptoms - Patient Data Vitals - Most Recent: Last Vital Signs Temp 98.1 F 02/02/21 15:16 Pulse 73 02/02/21 15:16 Resp 14 02/02/21 15:16 BP 115/58 L 02/02/21 15:16 Pulse Ox 97 02/02/21 15:16 Weight - Most Recent: 321 lb 12.799 oz I&O - Last 24 hours: Intake & Output 02/02/21 02/02/21 02/02/21 06:59 14:59 22:59 Intake Total 1325 50 600 Balance 1325 50 600 Lab Results - Last 24 hrs: Laboratory Results - last 24 hr 02/01/21 02/01/21 02/02/21 Range/Units 18:46 21:02 05:20 WBC 7.8 (4.5-11.0) K/uL RBC 4.13 (3.30-5.50) M/uL Hgb 11.8 L (12.0-15.0) g/dL Hct 36.3 (36.0-48.0) % MCV 88 (80-98) fL MCH 29 (27-31) pg MCHC 33 (32-36) % Plt Count 273 (150-400) K/uL POC Glucose 157 H 116 H (74-106) mg/dL 02/02/21 02/02/21 02/02/21 Range/Units 07:41 11:30 16:37 WBC (4.5-11.0) K/uL RBC (3.30-5.50) M/uL Hgb (12.0-15.0) g/dL Hct (36.0-48.0) % MCV (80-98) fL MCH (27-31) pg MCHC (32-36) % Plt Count (150-400) K/uL POC Glucose 93 94 97 (74-106) mg/dL Med Orders - Current: Current Medications Acetaminophen (Acetaminophen 325 Mg Tab) 650 mg PO Q4H PRN PRN Reason: Pain/Fever Last Admin: 02/01/21 15:44 Dose: 650 mg Documented by: Hydrocodone Bitart/Acetaminophen (Acetaminophen/Hydrocodone 325-5 Mg Tab) 1 - 2 tab PO Q4H PRN PRN Reason: Pain Last Admin: 02/02/21 16:58 Dose: 2 tab Documented by: Albuterol (Albuterol 8 Gm Inhaler) 0 gm INH ASDIRECTED PRN PRN Reason: Shortness of Breath Bandage/Support Products (Nozin Nasal Health And Safety Consultant) 1 applic NASBOTH BID [facility] Last Admin: 02/02/21 08:17 Dose: 1 applic Documented by: Docusate Sodium (Docusate Sodium 100 Mg Cap) 100 mg PO BID [facility] Last Admin: 02/02/21 08:18 Dose: 100 mg Documented by: Enoxaparin Sodium (Enoxaparin 30 Mg/0.3 Ml Syringe) 30 mg SUBCUT DAILY [facility] Last Admin: 02/02/21 08:18 Dose: 30 mg Documented by: Sodium Chloride (Normal Saline) 1,000 mls @ 125 mls/hr IV ASDIRECTED [facility] Last Admin: 02/02/21 05:55 Dose: 125 mls/hr Documented by: Ketorolac Tromethamine (Ketorolac 30 Mg/Ml Sdv) 15 mg IVPUSH Q8H PRN PRN Reason: Breakthrough Pain Stop: 02/06/21 11:46 Last Admin: 02/02/21 15:46 Dose: 15 mg Documented by: Loratadine (Loratadine 10 Mg Tab) 10 mg PO DAILY [facility] Last Admin: 02/02/21 08:18 Dose: 10 mg Documented by: Metformin HCl (Metformin 500 Mg Tab) 500 mg PO BIDMEALS [facility] Last Admin: 02/02/21 08:16 Dose: 500 mg Documented by: Mometasone Furoate/Formoterol Fumar (Formoterol/Mometasone 200-5 Mcg 8.8 Gm Inhaler) 1 puff IH DAILY@0700 [facility] Last Admin: 02/02/21 07:21 Dose: 1 puff Documented by: Ondansetron HCl (Ondansetron 4 Mg/2 Ml Sdv) 4 mg IVPUSH Q4H PRN PRN Reason: Nausea/Vomiting Pantoprazole Sodium (Pantoprazole 40 Mg Tab.Cr) 40 mg PO ACBREAKFAST [facility] Last Admin: 02/02/21 08:16 Dose: 40 mg Documented by: Pregabalin (Pregabalin 100 Mg Cap) 200 mg PO BID [facility] Last Admin: 02/02/21 08:24 Dose: 200 mg Documented by: Tiotropium Cornelia (Tiotropium Cornelia 4 Gm Inhalation [place] (2.5mcg/1 Dose; 10 Doses)) 0 gm INH BEDTIME [facility] Tramadol HCl (Tramadol 50 Mg Tab) 50 mg PO Q4H PRN PRN Reason: Pain (mild 1-3) Last Admin: 02/01/21 14:44 Dose: 50 mg Documented by: Discontinued Medications Bandage/Support Products (Nozin Nasal Health And Safety Consultant) 1 applic NASBOTH BID [facility] Last Admin: 02/01/21 13:47 Dose: Not Given Documented by: Bupivacaine HCl (Bupivacaine 0.5% 30 Ml Sdv) Confirm Administered Dose 30 ml .ROUTE .STK-MED ONE Stop: 02/01/21 06:54 Fentanyl (Fentanyl 100 Mcg/2 Ml Sdv) Confirm Administered Dose 100 mcg .ROUTE .STK-MED ONE Stop: 02/01/21 09:02 Cefazolin Sodium/Dextrose 2 gm (/ Premix) 50 mls @ 100 mls/hr IV ONETIME ONE Stop: 02/01/21 09:29 Last Admin: 02/01/21 10:21 Dose: 100 mls/hr Documented by: Lactated Ringer's (Ringers, Lactated) 1,000 mls @ 75 mls/hr IV ASDIRECTED [facility] Last Admin: 02/01/21 08:05 Dose: 75 mls/hr Documented by: Cefazolin Sodium/Dextrose 1 gm (/ Premix) 50 mls @ 100 mls/hr IV Q8H [facility] Stop: 02/02/21 10:29 Last Admin: 02/02/21 09:30 Dose: 100 mls/hr Documented by: Midazolam HCl (Midazolam 1 Mg/Ml 2 Ml Sdv) Confirm Administered Dose 2 mg .ROUTE .STK-MED ONE Stop: 02/01/21 09:03 Midazolam HCl (Midazolam 1 Mg/Ml 2 Ml Sdv) Confirm Administered Dose 2 mg .ROUTE .STK-MED ONE Stop: 02/01/21 10:42 Povidone Iodine (Povidone-Iodine 10% Soln 118.25 Ml Bottle) Confirm Administered Dose 1 ml .ROUTE .STK-MED ONE Stop: 02/01/21 06:54 Propofol (Propofol 200 Mg/20 Ml Sdv) Confirm Administered Dose 200 mg .ROUTE .STK-MED ONE Stop: 02/01/21 09:02 Propofol (Propofol 200 Mg/20 Ml Sdv) Confirm Administered Dose 200 mg .ROUTE .STK-MED ONE Stop: 02/01/21 10:51 Propofol (Propofol 200 Mg/20 Ml Sdv) Confirm Administered Dose 200 mg .ROUTE .STK-MED ONE Stop: 02/01/21 11:04 Tiotropium Cornelia (Tiotropium Cornelia 4 Gm Inhalation [place] (2.5mcg/1 Dose; 10 Doses)) 0 gm INH DAILY@0700 [facility] Last Admin: 02/02/21 07:22 Dose: Not Given Documented by: - Exam General: Reports: Alert, Oriented, Cooperative, No Acute Distress Extremities: Pedal Edema, Joint Swelling (left knee ), Leg Pain (left ), Limited Range of Motion (left knee from postoperative swelling and pain ), Increased Warmth (mild, left knee ). No: Esteban's Sign Skin: Reports: Warm, Dry, Intact Wound/Incisions: Reports: Healing Well, Dressing Dry and Intact, No Drainage Neurological: Reports: No New Focal Deficit Psy/Mental Status: Reports: Alert, Normal Affect, Normal Mood
--- NOTE | 2021-02-06 04:56 | OR ---
DATE OF PROCEDURE: 02/01/2021 SURGEON: Donaldo Cobos MD PREOPERATIVE DIAGNOSIS: Osteoarthritis, medial compartment, left knee. POSTOPERATIVE DIAGNOSIS: Osteoarthritis, medial compartment, left knee. PROCEDURE: Left medial unicompartmental arthroplasty using Lira and Nephew size D femur, size 2 tibia and 9 mm polyethylene. BARREL BANDER: JOSE CARLOS Salazar ANESTHESIA: Spinal with sedation. INDICATIONS: Elaina is a very pleasant 45-year-old female who has had progressive left knee pain for the past couple of years. Examination and imaging are consistent with degenerative changes of the medial compartment, particularly articular cartilage loss of the medial femoral condyle. She now presents for a medial unicompartmental arthroplasty. Risks, benefits, and potential complications of the procedure were discussed. DESCRIPTION OF PROCEDURE: After adequate anesthesia was obtained, the patient was placed supine with a tourniquet about the left upper thigh. Left leg was prepped and draped in a sterile fashion. Leg was exsanguinated and tourniquet inflated to 350 mmHg pressure. Surgical 1st talent assistant services were utilized by physician talent assistant for exposure, retraction, manipulation and positioning of the leg and closure. Anterior incision was made just slightly medial of midline and carried down through the subcutaneous tissues from the tibial tubercle to the superior pole of patella. Medial parapatellar arthrotomy was performed just up to the insertion of the VMO. A portion of the anterior fat pad was excised along with the anterior horn of the medial meniscus. Z retractor was placed and the knee was flexed, and the articular surface of the medial femoral condyle reveals cartilage loss along the majority of the weightbearing surface. Anterior lip of the tibial plateau is excised with an oscillating saw. The leg was extended and the extramedullary alignment jig was placed. This is aligned and secured to the femur and the tibia. Distal femoral resection is made. This portion of the guide was removed. The knee was flexed and the proximal tibia was then resected. The guide was removed. A bone fragment is excised along with the remaining medial meniscus, which shows degenerative changes predominantly in the posterior horn. The femur is sized to a D component. D cutting jig was secured. Peg holes were drilled and the remaining cuts were made. The guide was removed. The tibia was then sized to #2 component. #2 trial is tapped into position and secured with a small pin and peg holes were drilled. Femoral trial is placed and the knee was then taken to range of motion with an 8 and 9 mm spacer trials. 9 mm providing better balance in flexion and extension with a 2 mm gap in each. The trials were removed. The knee is thoroughly irrigated with pulse lavage. The cut bone surfaces were dried. The components were cemented in place. Excess cement was removed and the knee was held in full extension with an 8 mm poly and the 2 mm spacing guide as the cement cured. The knee is again taken through range of motion. 8 mm shows about 3 mm of the gap in both flexion and extension, and a 9 mm trial is placed. This shows good balance with 2 mm gap in both flexion and extension. Trial was removed. The knee is irrigated. Final polyethylene is positioned. The knee was then irrigated with dilute Betadine solution followed by pulse lavage. The capsule was closed with #2 Ethibond in a running fashion. Skin closed with 2-0 Vicryl and 3- 0 Monocryl. Steri-Strips were applied. The patient tolerated the procedure very well. There were no complications taken from the operating room in a stable condition. Donaldo Cobos MD /[id number] [facility]
== END 2021-02-02 18:28 | disposition home health service (06) ==
LOC: JP.SDS 07:29 → JP.MS 11:46 → JP.SDS 02-02 18:28
PROVIDERS: ATTEND Specialist
DX: M17.12 Unilateral primary osteoarthritis, left knee (principal); D64.9 Anemia, unspecified; E66.01 Morbid (severe) obesity due to excess calories; E11.9 Type 2 diabetes mellitus without complications; D86.89 Sarcoidosis of other sites; Z90.49 Acquired absence of other specified parts of digestive tract; Z79.899 Other long term (current) drug therapy; Z98.890 Other specified postprocedural states; Z88.8 Allergy status to other drugs, medicaments and biological substances; Z88.1 Allergy status to other antibiotic agents; Z88.5 Allergy status to narcotic agent; Z79.84 Long term (current) use of oral hypoglycemic drugs
CPT/HCPCS: 27446; 36415; 73560; 82947; 85027; 94640; 97110; 97116; 97162; 97165; 97530; 97535; A9270; C1713; C1776; J0690; J1650; J1885; J2250; J2704; J3010; J7030; J7120; J3490

== ENCOUNTER 2022-06-25 08:30 | Day surgery (SDC) | payer MEDICAID ==
[2022-06-25] MEDS ORDERED: Lactated Ringers 1,000 ML IV SCH (09:00)
[2022-06-25] MEDS ORDERED: Nozin Nasal Sanitizer NASBOTH ONE (09:00)
[2022-06-25] MEDS ORDERED: ceFAZolin 1 GM in Premix Bag 1 BAG IV ONE (09:00)
[2022-06-25 10:19] LABS: ESTIMATED GFR 80 mL/min (>60)
[2022-06-25] MEDS ORDERED: Bupivacaine 0.5% 30 ML SDV ONE (10:40)
[2022-06-25] MEDS ORDERED: fentaNYL 250 MCG/5 ML SDV ONE ×2 (12:18→13:02)
[2022-06-25] MEDS ORDERED: Propofol 200 MG/20 ML SDV ONE (12:19)
[2022-06-25] MEDS ORDERED: Neostigmine Methylsulfate 1 MG/ML 5 ML Syringe ONE (12:19)
[2022-06-25] MEDS ORDERED: Dexamethasone 4 MG/ML SDV ONE (12:19)
[2022-06-25] MEDS ORDERED: Rocuronium 50 MG/5 ML Vial ONE (12:19)
[2022-06-25] MEDS ORDERED: Ondansetron 4 MG/2 ML SDV ONE (12:19)
[2022-06-25] MEDS ORDERED: Succinylcholine 200 MG/10 ML MDV ONE (12:19)
[2022-06-25] MEDS ORDERED: Glycopyrrolate 0.2 MG/ML 5 ML MDV ONE (12:19)
[2022-06-25] MEDS ORDERED: Lactated Ringers 1,000 ML ONE (12:40)
[2022-06-25] MEDS ORDERED: traMADol 50 MG Tab PO ONE (15:00)
[2022-06-25] MEDS ORDERED: Ondansetron 4 MG Tab.DIS PO ONE (15:30)
[2022-06-25 15:34] VITALS: BP 121/73; PULSE 72
== END 2022-06-25 16:10 | disposition home or self-care (01) ==
LOC: JP.SDS 08:30
PROVIDERS: ATTEND Specialist
DX: M22.42 Chondromalacia patellae, left knee (principal); E11.9 Type 2 diabetes mellitus without complications; D86.9 Sarcoidosis, unspecified; E66.01 Morbid (severe) obesity due to excess calories; F17.210 Nicotine dependence, cigarettes, uncomplicated; E55.9 Vitamin D deficiency, unspecified; Z68.43 Body mass index [BMI] 50.0-59.9, adult; Z79.899 Other long term (current) drug therapy; Z79.84 Long term (current) use of oral hypoglycemic drugs; Z88.0 Allergy status to penicillin; Z88.6 Allergy status to analgesic agent; Z88.1 Allergy status to other antibiotic agents
CPT/HCPCS: 29874; 29999; 36415; 80053; 85027; A9270; J0330; J0690; J1100; J2405; J2704; J2710; J3010; J3490; J7120; Q0162

== ENCOUNTER 2023-06-10 06:44 | Inpatient (IN) | payer MEDICAID ==
[2023-06-10] MEDS ORDERED: Bupivacaine 0.5% 50 ML MDV ONE (06:53)
[2023-06-10 07:26] LABS: HEMATOCRIT 38.1 % (34.3-46.0); HEMOGLOBIN 12.5 g/dL (11.2-15.5); MEAN CORPUSCULAR HEMOGLOBIN 29.3 pg (31.6-35.5); MEAN CORPUSCULAR HGB CONC 32.8 g/dL (31.6-35.5); MEAN CORPUSCULAR VOLUME 89.4 fL (81.4-99.0); RED BLOOD CELL COUNT 4.26 M/uL (3.77-5.24); WHITE BLOOD CELL COUNT,WBC 7.5 K/uL (3.2-11.0)
[2023-06-10] MEDS ORDERED: Scopalamine 1mg/3day Transdermal Patch TRDERM PRN (07:27)
[2023-06-10] MEDS ORDERED: Lactated Ringers 1,000 ML IV SCH (07:45)
[2023-06-10] MEDS ORDERED: Propofol 200 MG/20 ML SDV ONE ×3 (07:45→10:46)
[2023-06-10 07:46] LABS: A/G RATIO 0.8 (1.2-2.2); ALANINE AMINOTRANSFERASE,ALT 72 U/L (12-78); ALBUMIN 3.2 g/dL (3.4-5.0); ALKALINE PHOSPHATASE 88 U/L (46-116); ANION GAP 8.2 mmol/L (5.0-14.0); ASPARTATE AMNIOTRANSFERASE,AST 42 U/L (15-37); BILIRUBIN TOTAL 0.5 mg/dL (0.2-1.0); BLOOD UREA NITROGEN,BUN 13 mg/dL (7-18); CALCIUM 8.8 mg/dL (8.5-10.1); CARBON DIOXIDE,CO2 29 mmol/L (21-32); CHLORIDE,CL 103 mmol/L (100-108); CREATININE 0.9 mg/dL (0.6-1.0); ESTIMATED GFR 79 mL/min (>60); GLUCOSE RANDOM 145 mg/dL (74-106); POTASSIUM,K 4.3 mmol/L (3.6-5.2); SODIUM,NA 140 mmol/L (140-148)
[2023-06-10] MEDS ORDERED: fentaNYL 100 MCG/2 ML SDV ONE (07:46)
[2023-06-10] MEDS ORDERED: Midazolam 1 MG/ML 2 ML SDV ONE (07:46)
[2023-06-10] MEDS ORDERED: Nozin Nasal Sanitizer NASBOTH SCH (08:00)
[2023-06-10] MEDS ORDERED: ceFAZolin 2 GM in Premix Bag 1 BAG IV ONE (08:00)
[2023-06-10] MEDS ORDERED: Tranexamic Acid 1,000 MG in Sodium Chloride 0.9% 50 ML IV ONE (08:30)
[2023-06-10] MEDS ORDERED: oxyCODONE 5 MG Tab PO PRN (09:05)
[2023-06-10] MEDS ORDERED: Magnesium Hydroxide 400 MG/5 ML Susp 30 ML Cup PO PRN (09:06)
[2023-06-10] MEDS ORDERED: Ondansetron 4 MG/2 ML SDV IVPUSH PRN (09:06)
[2023-06-10] MEDS ORDERED: Albuterol 6.7 GM Inhaler INH PRN (09:10)
[2023-06-10] MEDS ORDERED: Lactated Ringers 1,000 ML ONE (10:13)
[2023-06-10] MEDS: SCOPOLAMINE PATCH CHECK TOP SCH (13:25)
[2023-06-10] MEDS: oxyCODONE 5 MG Tab PO PRN ×2 (13:41→20:58)
[2023-06-10] MEDS: Acetaminophen 325 MG Tab PO SCH ×2 (13:43→19:38)
[2023-06-10] MEDS ORDERED: Ketorolac 30 MG/ML SDV IVPUSH ONE (14:15)
[2023-06-10] MEDS ORDERED: Naloxone 0.4 MG/ML SDV IVPUSH PRN (16:56)
[2023-06-10] MEDS ORDERED: HYDROmorphone 0.5 MG/0.5 ML Syringe IVPUSH PRN (16:56)
[2023-06-10] MEDS: metFORMIN 500 MG Tab PO SCH (17:15)
[2023-06-10] MEDS: ceFAZolin 2 GM in Premix Bag 1 BAG IV SCH (17:15)
[2023-06-10] MEDS: Sodium Chloride 0.9% 1,000 ML IV SCH (17:15)
[2023-06-10] MEDS: Ketorolac 15 MG/ML SDV IVPUSH SCH (19:38)
[2023-06-10] MEDS ORDERED: VARENICLINE 1 MG PO SCH (21:00)
[2023-06-10] MEDS: Formoterol/Mometasone 200-5 MCG 8.8 GM Inhaler IH SCH (21:00)
[2023-06-10] MEDS: Pregabalin 100 MG Cap PO SCH (21:02)
[2023-06-10] MEDS: Nozin Nasal Sanitizer NASBOTH SCH (21:45)
[2023-06-10] MEDS ORDERED: Montelukast 10 MG Tab PO SCH (22:00)
[2023-06-10] MEDS: Montelukast 10 MG Tab PO SCH (22:36)
[2023-06-11] MEDS: Acetaminophen 325 MG Tab PO SCH ×4 (01:35→19:48)
[2023-06-11] MEDS: Ketorolac 15 MG/ML SDV IVPUSH SCH ×4 (01:36→20:43)
[2023-06-11] MEDS: Sodium Chloride 0.9% 1,000 ML IV SCH (01:48)
[2023-06-11] MEDS: ceFAZolin 2 GM in Premix Bag 1 BAG IV SCH ×2 (01:57→08:46)
[2023-06-11] MEDS: oxyCODONE 5 MG Tab PO PRN ×3 (04:01→17:46)
[2023-06-11] MEDS: Formoterol/Mometasone 200-5 MCG 8.8 GM Inhaler IH SCH ×2 (07:28→20:44)
[2023-06-11] MEDS: Tiotropium Bromide 4 GM Inhalation Spray (2.5mcg/1 dose; 10 doses) INH SCH (07:28)
[2023-06-11] MEDS: Pantoprazole 40 MG Tab.CR PO SCH (07:54)
[2023-06-11] MEDS: metFORMIN 500 MG Tab PO SCH ×2 (08:01→16:36)
[2023-06-11] MEDS: Rosuvastatin 10 MG Tab PO SCH (08:02)
[2023-06-11] MEDS: Multivitamins with Iron/Calcium/Folic Acid/Minerals Tab PO SCH (08:02)
[2023-06-11] MEDS: Aspirin 325 MG Tab.EC PO SCH ×2 (08:02→20:47)
[2023-06-11] MEDS: Pregabalin 100 MG Cap PO SCH ×2 (08:05→20:43)
[2023-06-11] MEDS ORDERED: Non-Formulary Medication 1 Each (Fluticasone/Vilanterol 1 EACH Each) INH SCH (09:00)
[2023-06-11] MEDS ORDERED: Montelukast 10 MG Tab PO SCH (09:00)
[2023-06-11] MEDS: SCOPOLAMINE PATCH CHECK TOP SCH (09:00)
[2023-06-11] MEDS: Nozin Nasal Sanitizer NASBOTH SCH ×2 (10:26→20:46)
[2023-06-11] MEDS: Docusate Sodium 100 MG Cap PO PRN (14:41)
[2023-06-11] MEDS: Cyclobenzaprine 10 MG Tab PO PRN ×2 (14:41→21:49)
[2023-06-11] MEDS: Montelukast 10 MG Tab PO SCH (20:47)
[2023-06-12] MEDS: oxyCODONE 5 MG Tab PO PRN ×3 (00:20→12:55)
[2023-06-12] MEDS: Acetaminophen 325 MG Tab PO SCH ×2 (02:15→08:09)
[2023-06-12] MEDS: Ketorolac 15 MG/ML SDV IVPUSH SCH (02:17)
[2023-06-12] MEDS: Tiotropium Bromide 4 GM Inhalation Spray (2.5mcg/1 dose; 10 doses) INH SCH (07:45)
[2023-06-12] MEDS: Formoterol/Mometasone 200-5 MCG 8.8 GM Inhaler IH SCH (07:45)
[2023-06-12] MEDS: Docusate Sodium 100 MG Cap PO PRN (08:09)
[2023-06-12] MEDS: Nozin Nasal Sanitizer NASBOTH SCH (08:09)
[2023-06-12] MEDS: metFORMIN 500 MG Tab PO SCH (08:09)
[2023-06-12] MEDS: Pantoprazole 40 MG Tab.CR PO SCH (08:09)
[2023-06-12] MEDS: SCOPOLAMINE PATCH CHECK TOP SCH (08:10)
[2023-06-12] MEDS: Aspirin 325 MG Tab.EC PO SCH (08:10)
[2023-06-12] MEDS: Rosuvastatin 10 MG Tab PO SCH (08:10)
[2023-06-12] MEDS: Multivitamins with Iron/Calcium/Folic Acid/Minerals Tab PO SCH (08:10)
[2023-06-12] MEDS: Pregabalin 100 MG Cap PO SCH (08:12)
[2023-06-12 11:23] VITALS: BP 108/55; PULSE 85
== END 2023-06-12 12:30 | disposition home or self-care (01) | DRG 470 ==
LOC: JP.SDS 06:44 → JP.MS 09:07 → JP.SDS 06-11 13:08
PROVIDERS: ADMIT Specialist; ATTEND Specialist
PROC: 0SRC069 Replacement of Right Knee Joint with Oxidized Zirconium on Polyethylene Synthetic Substitute, Cemented, Open Approach (ICD-10-PCS; principal; 2023-06-11)
DX: M17.11 Unilateral primary osteoarthritis, right knee (principal); K21.9 Gastro-esophageal reflux disease without esophagitis; E11.9 Type 2 diabetes mellitus without complications; Z79.51 Long term (current) use of inhaled steroids; Z79.84 Long term (current) use of oral hypoglycemic drugs; Z79.82 Long term (current) use of aspirin; Z79.899 Other long term (current) drug therapy; Z98.890 Other specified postprocedural states
CPT/HCPCS: 36415; 73560-26-RT; 73560-RT; 80053; 82947; 85027; 94640; 97110-GP; 97116-GP; 97161-GP; A9270-GY; C1713; C1776; J0690; J1885; J2250; J2704; J3010; J3490; J7030; J7120

== ENCOUNTER 2024-01-27 07:52 | Day surgery (SDC) | payer MEDICAID ==
[2024-01-27] MEDS ORDERED: fentaNYL 100 MCG/2 ML SDV ONE (08:21)
[2024-01-27] MEDS ORDERED: Midazolam 1 MG/ML 2 ML SDV ONE (08:21)
[2024-01-27] MEDS ORDERED: Propofol 200 MG/20 ML SDV ONE (08:21)
[2024-01-27 08:28] LABS: HEMATOCRIT 36.9 % (34.3-46.0); HEMOGLOBIN 12.5 g/dL (11.2-15.5); MEAN CORPUSCULAR HEMOGLOBIN 28.5 pg (31.6-35.5); MEAN CORPUSCULAR HGB CONC 33.9 g/dL (31.6-35.5); MEAN CORPUSCULAR VOLUME 84.2 fL (81.4-99.0); RED BLOOD CELL COUNT 4.38 M/uL (3.77-5.24); WHITE BLOOD CELL COUNT,WBC 7.4 K/uL (3.2-11.0)
[2024-01-27 08:48] LABS: A/G RATIO 0.9 (1.2-2.2); ALANINE AMINOTRANSFERASE,ALT 49 U/L (12-78); ALBUMIN 3.6 g/dL (3.4-5.0); ALKALINE PHOSPHATASE 112 U/L (46-116); ANION GAP 6.6 mmol/L (5.0-14.0); ASPARTATE AMNIOTRANSFERASE,AST 32 U/L (15-37); BILIRUBIN TOTAL 0.6 mg/dL (0.2-1.0); BLOOD UREA NITROGEN,BUN 9 mg/dL (7-18); CALCIUM 9.5 mg/dL (8.5-10.1); CARBON DIOXIDE,CO2 30 mmol/L (21-32); CHLORIDE,CL 103 mmol/L (100-108); CREATININE 0.9 mg/dL (0.6-1.0); EST CRCL DRUG DOSING (CG) 68.79 mL/min; ESTIMATED GFR 79 mL/min (>60); GLUCOSE RANDOM 153 mg/dL (74-106); PROTEIN TOTAL,TP 7.7 g/dL (6.4-8.2); SODIUM,NA 140 mmol/L (140-148)
[2024-01-27] MEDS: Nozin Nasal Sanitizer NASBOTH SCH ×2 (09:02→21:08)
[2024-01-27] MEDS: Lactated Ringers 1,000 ML IV SCH (09:02)
[2024-01-27] MEDS: ceFAZolin 2 GM in Premix Bag 1 BAG IV ONE (10:00)
[2024-01-27] MEDS: Tranexamic Acid 1,000 MG in Sodium Chloride 0.9% 50 ML IV ONE (10:30)
[2024-01-27] MEDS ORDERED: Rocuronium 50 MG/5 ML Vial ONE (10:32)
[2024-01-27] MEDS ORDERED: Succinylcholine 200 MG/10 ML MDV ONE (10:32)
[2024-01-27] MEDS ORDERED: Neostigmine Methylsulfate 10 MG/10 ML MDV ONE (10:32)
[2024-01-27] MEDS ORDERED: Glycopyrrolate 0.2 MG/ML 5 ML MDV ONE (10:32)
[2024-01-27] MEDS ORDERED: Dexamethasone 4 MG/ML SDV ONE (10:32)
[2024-01-27] MEDS ORDERED: Ondansetron 4 MG/2 ML SDV ONE (10:32)
[2024-01-27] MEDS ORDERED: fentaNYL 250 MCG/5 ML SDV ONE ×2 (10:58→11:47)
[2024-01-27] MEDS: Bupivacaine 0.5% 50 ML MDV ONE (11:23)
[2024-01-27] MEDS ORDERED: oxyCODONE 5 MG Tab PO PRN (13:09)
[2024-01-27] MEDS ORDERED: Ondansetron 4 MG/2 ML SDV IVPUSH PRN (13:10)
[2024-01-27] MEDS ORDERED: Docusate Sodium 100 MG Cap PO PRN (13:10)
[2024-01-27] MEDS ORDERED: Albuterol 6.7 GM Inhaler INH PRN (13:11)
[2024-01-27] MEDS: hydrOXYzine HCL 100 MG/2 ML SDV IM ONE (13:54)
[2024-01-27] MEDS: fentaNYL 50 MCG/ML SDV IVPUSH ONE (13:56)
[2024-01-27] MEDS: Sodium Chloride 0.9% 1,000 ML IV SCH (14:43)
[2024-01-27] MEDS: Ketorolac 15 MG/ML SDV IVPUSH PRN (14:57)
[2024-01-27] MEDS: metFORMIN 500 MG Tab PO SCH (17:16)
[2024-01-27] MEDS: Acetaminophen 325 MG Tab PO SCH (17:16)
[2024-01-27] MEDS: ceFAZolin 2 GM in Premix Bag 1 BAG IV SCH (17:41)
[2024-01-27] MEDS: oxyCODONE 5 MG Tab PO PRN (19:54)
[2024-01-27] MEDS ORDERED: Pregabalin 100 MG Cap PO SCH (21:00)
[2024-01-27] MEDS: VARENICLINE 1 MG PO SCH (21:10)
[2024-01-27] MEDS: Pregabalin 100 MG Cap PO SCH (21:23)
[2024-01-28 05:53] LABS: HEMATOCRIT 28.4 % (34.3-46.0); HEMOGLOBIN 9.5 g/dL (11.2-15.5); MEAN CORPUSCULAR HEMOGLOBIN 28.4 pg (31.6-35.5); MEAN CORPUSCULAR HGB CONC 33.5 g/dL (31.6-35.5); MEAN CORPUSCULAR VOLUME 84.8 fL (81.4-99.0); RED BLOOD CELL COUNT 3.35 M/uL (3.77-5.24); WHITE BLOOD CELL COUNT,WBC 8.8 K/uL (3.2-11.0)
[2024-01-28] MEDS: Formoterol/Mometasone 200-5 MCG 8.8 GM Inhaler INH SCH (07:02)
[2024-01-28] MEDS: Pantoprazole 40 MG Tab.CR PO SCH (08:31)
[2024-01-28] MEDS: Rosuvastatin 10 MG Tab PO SCH (08:33)
[2024-01-28] MEDS: Aspirin 325 MG Tab.EC PO SCH (08:33)
[2024-01-28] MEDS: Multivitamins with Iron/Calcium/Folic Acid/Minerals Tab PO SCH (08:33)
[2024-01-28] MEDS: Tiotropium Bromide 4 GM Inhalation Spray (2.5mcg/1 dose; 10 doses) INH SCH (08:34)
[2024-01-28 14:10] VITALS: BP 134/67; PULSE 64
[2024-01-28] MEDS ORDERED: Montelukast 10 MG Tab PO SCH (21:00)
== END 2024-01-28 14:08 | disposition home or self-care (01) ==
LOC: JP.SDS 07:52 → JP.MS 13:10 → JP.SDS 01-28 14:08
PROVIDERS: ATTEND Specialist
DX: M16.11 Unilateral primary osteoarthritis, right hip (principal); E78.5 Hyperlipidemia, unspecified
CPT/HCPCS: 01214-QZ; 36415; 72170; 72170-26; 80053; 82947; 84703; 85027; 94640; 97110-GP; 97116-GP; 97161-GP; 97165-GO; 97530-GP; 97535-GO; A9270-GY; C1713; C1776; J0330; J0665; J0690; J1100; J1596; J1885; J2250; J2405; J2704; J2710; J3010; J3410; J3490; J7030; J7120

== ENCOUNTER 2024-08-16 18:14 | Emergency (ER) | payer MEDICAID ==
[2024-08-16 19:47] VITALS: BP 123/68; PULSE 66
== END 2024-08-16 21:26 | disposition home or self-care (01) ==
LOC: JP.ED 18:14
DX: S73.101A Unspecified sprain of right hip, initial encounter (principal); S83.91XA Sprain of unspecified site of right knee, initial encounter; E11.9 Type 2 diabetes mellitus without complications; F17.210 Nicotine dependence, cigarettes, uncomplicated; Z79.899 Other long term (current) drug therapy; Z79.51 Long term (current) use of inhaled steroids; Z79.84 Long term (current) use of oral hypoglycemic drugs; Z88.0 Allergy status to penicillin; Z88.5 Allergy status to narcotic agent; Z88.8 Allergy status to other drugs, medicaments and biological substances; W01.0XXA Fall on same level from slipping, tripping and stumbling without subsequent striking against object, initial encounter
CPT/HCPCS: 72170; 72170-26; 73552-26-LT; 73552-RT; 99283

== ENCOUNTER 2024-09-07 06:34 | Day surgery (SDC) | payer MEDICAID ==
[2024-09-07 07:02] LABS: HEMATOCRIT 39.9 % (34.3-46.0); HEMOGLOBIN 12.9 g/dL (11.2-15.5); MEAN CORPUSCULAR HEMOGLOBIN 28.9 pg (31.6-35.5); MEAN CORPUSCULAR HGB CONC 32.3 g/dL (31.6-35.5); MEAN CORPUSCULAR VOLUME 89.3 fL (81.4-99.0); RED BLOOD CELL COUNT 4.47 M/uL (3.77-5.24)
[2024-09-07 07:18] LABS: CALCIUM 9.1 mg/dL (8.5-10.1); CREATININE 0.9 mg/dL (0.6-1.0); EST CRCL DRUG DOSING (CG) 68.04 mL/min; POTASSIUM,K 4.1 mmol/L (3.6-5.2)
[2024-09-07] MEDS: Nozin Nasal Sanitizer NASBOTH ONE (07:30)
[2024-09-07] MEDS: Lactated Ringers 1,000 ML IV SCH (07:30)
[2024-09-07] MEDS ORDERED: fentaNYL 100 MCG/2 ML SDV ONE (07:35)
[2024-09-07] MEDS ORDERED: Propofol 200 MG/20 ML SDV ONE (07:35)
[2024-09-07] MEDS ORDERED: Midazolam 1 MG/ML 2 ML SDV ONE (07:35)
[2024-09-07] MEDS ORDERED: Lidocaine 0.5% 50 ML SDV ONE (07:36)
[2024-09-07] MEDS: ceFAZolin 1 GM in Premix Bag 1 BAG IV ONE (07:45)
[2024-09-07] MEDS: Betamethasone Acetate/Betamethasone Sod Phosphate 6 MG/1 ML MDV IM ONE (08:00)
[2024-09-07] MEDS: Bupivacaine 0.5% 30 ML SDV ONE (08:13)
[2024-09-07 09:54] VITALS: BP 114/72; PULSE 67
== END 2024-09-07 10:50 | disposition home or self-care (01) ==
LOC: JP.SDS 06:34
PROVIDERS: ATTEND Specialist
DX: M65.311 Trigger thumb, right thumb (principal); M65.331 Trigger finger, right middle finger; F17.200 Nicotine dependence, unspecified, uncomplicated
CPT/HCPCS: 01810; 20600; 26055; 26160; 36415; 80048; 85027; A9270; J0665; J0689; J0702; J2250; J2704; J3010; J7120